=== PATIENT | male | born 1970 | race Caucasian/White ===

== ENCOUNTER 2022-03-27 15:34 | Inpatient (IN) | payer MEDICAID, SELFPAY ==
[2022-03-27 15:34] VITALS: BP 104/76; PULSE 86; RESP 18; TEMP 36.4; O2SAT 99
[2022-03-27 16:04] VITALS: BMI 24.5
--- NOTE | 2022-03-27 16:45 | PC.NURSE ---
Patient denies current SI/HI or VH/AH. Patient states he was admitted due to overdosing on one of his depression medications (he can't remember the name of it). He states he just started having thoughts that no one cared about or loved him. He says he currently lives with his fiance and her mom, who is on hospice. Patient says his former in 2013 of a heart attack and his kids won't talk to him anymore. When asked what the conflict was with the children he stated, I have no idea. He states he has been diagnosed as bipolar before when he was at [facility] for a suicide attempt last year for an overdose with lyrica, seroquel and trazadone around the same time last year.
[2022-03-27 17:29] LABS: Glucose Point of Care 395 mg/dL (70-110)
[2022-03-27] MEDS: insulin lispro 100 unit/1 mL SUBCUT (18:31)
[2022-03-27 19:51] LABS: Glucose Point of Care 374 mg/dL (70-110)
[2022-03-27] MEDS: trazodone 50 mg Tablet PO (20:27)
[2022-03-27] MEDS: pantoprazole DR 40 mg Tablet PO (20:46)
[2022-03-27 21:56] VITALS: BP 104/76; PULSE 86; RESP 18; TEMP 36.4
[2022-03-27 22:36] VITALS: RESP 18
[2022-03-28 06:00] VITALS: BP 106/69; PULSE 75; RESP 16; TEMP 36.7; O2SAT 97
[2022-03-28 08:13] LABS: Glucose Point of Care 292 mg/dL (70-110)
--- NOTE | 2022-03-28 09:06 | P.NPUHP_ITS ---
Providers/Chief Complaint Admitting Physician: Sreekanth Velez MD Chief Complaint: SI HPI NPU History of Present Illness Lisa Stone is a 52 year old male who presented to [facility] with reports of an intentional overdose. He has a history of type 2 diabetes hypertension hyperlipidemia and depression and was admitted to their ICU for further evaluation after a reported intentional overdose of Lamictal and trazodone. They had suspicion of serotonin syndrome and he was placed on benzodiazepines and IV hydration and insulin regimen psychiatry was consulted and inpatient hospitalization was recommended. He was transferred to [facility] and admitted to the neuropsychiatric unit for definitive treatment of those issues. He presents today reporting that he knows that he did somethin g stupid but that this time it was not as bad as other times. He reports that he had not been taking his medications and started having increased depression. He reports that he took the overdose secondary to feeling some sort away and likely secondary to relapsing on methamphetamine. He endorses that he chews but does not drink significant alcohol and has cannabis every once in a while. He does report having difficulties with methamphetamine reporting that he uses every month but could not be more specific about his use pattern he denies that it is a big deal. He denies having significant treatment or sequela from his use. He was having occasional tweaking behavior which she reports as side effects from previous Abilify use and denies that it likely is a methamphetamine induced phenomena. He reports that he is open to getting some medication restarted but was unclear what he would be willing to take. We discussed the risks, benefits and alternatives of a trial of Invega and he understood and agreed to proceed as is documented in this note. He was never able to articulate why this overdose occurred right now and he seemed to be more interested in a hastened discharge then a factual conversation. Psychiatric history: As above. Substance abuse history: As above. Developmental history: He denied any issues of developmental delay, or delivery issues or learning disability. Psychosocial history: He was a limited historian as we explored this area but reports that he might be on disability and not currently working. He was very tightlipped or at least avoided questions about his psychosocial history. Medical history: He does have diabetes and reports other medical issues and some allergies but was not specific. Legal history: He denied any significant legal issues at this time. Meds NPU Home Medications Medication Instructions Recorded Confirmed Last Taken Type atorvastatin 10 mg tablet 10 mg PO DAILY 03/27/22 03/27/22 Unknown History fluoxetine 10 mg capsule 10 mg PO DAILY 03/27/22 03/27/22 Unknown History glipizide 5 mg tablet 5 mg PO BIDWM 03/27/22 03/27/22 Unknown History insulin glargine 100 unit/mL (3 30 unit SUBCUT DIRECTED 03/27/22 03/28/22 Unknown History mL) subcutaneous pen (Lantus Solostar U-100 Insulin) lamotrigine 150 mg tablet 150 mg PO BID 03/27/22 03/27/22 Unknown History metformin 500 mg tablet 1,000 mg PO BID 03/27/22 03/27/22 Unknown History pantoprazole 40 mg tablet,delayed 40 mg PO BEDTIME 03/27/22 03/27/22 Unknown History release Allergies Allergy/AdvReac Type Severity Reaction Status Date / Time No Known Allergies Allergy Verified 03/27/22 15:31 Mental Status Exam MSE Comments: This is a well-nourished well-developed white male looking younger than his stated age in hospital scrubs with adequate grooming and eye contact. No abnormal movements except for occasional psychomotor agitation that looks like tweaking but certainly could represent a EPS syndrome related to Abilify or other psychotropic medication. Cooperative with exam in no acute distress. Speech was limited and normal rate and decreased volume. Mood described as better than yesterday, affect antsy. Thought process organized. Thought content: Patient denied suicidal or homicidal ideations, there were no delusions reported or noted, he denied any auditory or visual hallucinations. Attention and concentration were intact and memory appeared unreliable but none were formally tested. He is alert and oriented x3. Insight, judgment and impulse control appear impaired. Vitals/I&O/Wt Last Vital Signs Temp 98.1 F 03/28/22 06:00 Pulse 75 03/28/22 06:00 Resp 16 03/28/22 06:00 BP 106/69 03/28/22 06:00 Pulse Ox 97 03/28/22 06:00 O2 Del Method 03/28/22 06:00 Weight last 48 hrs Weight 84.368 kg Weight 84.368 kg A&P Assessment and plan (1) Major depressive disorder, recurrent: (2) Serotonin syndrome: (3) Intentional overdose: (4) Diabetes: Plan This is a 52-year-old white male with a long history of addiction, diabetes and reported suicide attempts/overdoses who presents status post overdose reporting that he is fine in general and desiring to leave as soon as possible not on a 96-hour hold. 1. Continue current medication. We will consider initiating Invega 3 mg p.o. daily after further discussion. 2. Continue every 15 minute checks for safety. 3. Encourage individual, group and milieu therapies. 4. Encourage sober living treatment after discharge at the highest level of care to which he is willing to commit. Involuntary Hold Information 96 Hour Hold: 96 Hour Involuntary Admission: No Attestations NPU Medical Necessity Statement*: Inpatient hospitalization is medically necessary and the clinically appropriate intervention at this time. We will monitor/initiate medications and make changes as indicated. He will be in the hospital for over 2 midnights. Likely length of stay 3 to 5 days. Coding Level of Care Code Acute [employer] Functional Analyst for Minnie Zhang Diagnoses Major depressive disorder, recurrent F33.9 Serotonin syndrome G25.79 Intentional overdose T50.902A Diabetes E11.9
[2022-03-28 12:25] LABS: Glucose Point of Care 400 mg/dL (70-110)
[2022-03-28] MEDS: insulin lispro 100 unit/1 mL SUBCUT ×3 (12:34→22:43)
--- NOTE | 2022-03-28 13:30 | PC.NURSE ---
DURING AM ASSESSMENT PT REFUSED TO LET THIS NURSE ASSESS ANYTHING. PT REMAINED IN BED WITH BLANKET OVER HIS FACE. PT ALSO REFUSED ALL MORNING MEDS AND WANTED TO BE LEFT ALONE. DURING LUNCH PT TOOK MEDS ORDERED.
[2022-03-28 14:00] VITALS: BP 111/72; PULSE 83; RESP 16; TEMP 36.2; O2SAT 100
[2022-03-28] MEDS: lamoTRIgine 100 mg Tablet 150 MG PO (17:45)
[2022-03-28] MEDS: metformin 500 mg Tablet 1000 MG PO (17:45)
[2022-03-28 17:50] LABS: Glucose Point of Care 456 mg/dL (70-110)
[2022-03-28 19:57] VITALS: BP 123/83; PULSE 90; RESP 18; TEMP 36.6; O2SAT 98
[2022-03-28] MEDS: pantoprazole DR 40 mg Tablet PO (20:26)
[2022-03-28] MEDS: trazodone 50 mg Tablet PO ×2 (20:26→21:41)
[2022-03-28 21:43] LABS: Glucose Point of Care 394 mg/dL (70-110)
[2022-03-28] MEDS: acetaminophen 325 mg Tablet 650 MG PO (21:47)
[2022-03-29 06:00] VITALS: RESP 16
[2022-03-29 08:26] LABS: Glucose Point of Care 324 mg/dL (70-110)
[2022-03-29] MEDS: insulin lispro 100 unit/1 mL SUBCUT ×4 (09:15→19:56)
--- NOTE | 2022-03-29 09:44 | W.PM.NPUPNS ---
Subjective NPU Subjective: Patient presents today reporting that he is unsure whether he plans to take the medication. He continued to downplay his overdose and we discussed the plan to have the treatment team work with him on referrals Thursday. We discussed his previous medications but he feels he just needs to work on his addiction, but that he had no real commitment to that conversation showing significant ambivalence. Mental Status Exam MSE Comments: This is a well-nourished well-developed white male looking younger than his stated age in hospital scrubs with adequate grooming and eye contact. No abnormal movements except for occasional psychomotor agitation that looks like tweaking but certainly could represent a EPS syndrome related to Abilify or other psychotropic medication. Cooperative with exam in no acute distress. Speech was limited and normal rate and decreased volume. Mood described as,okay, want I want to go home soon as possible\, affect antsy. Thought process organized. Thought content: Patient denied suicidal or homicidal ideations, there were no delusions reported or noted, he denied any auditory or visual hallucinations. Attention and concentration were intact and memory appeared unreliable but none were formally tested. He is alert and oriented x3. Insight, judgment and impulse control appear impaired. Vitals/I&O/Wt Last Vital Signs Temp 97.9 F 03/28/22 19:57 Pulse 90 03/28/22 19:57 Resp 16 03/29/22 06:00 BP 123/83 03/28/22 19:57 Pulse Ox 98 03/28/22 19:57 O2 Del Method 03/28/22 14:00 Weight last 48 hrs Weight 84.368 kg Weight 84.368 kg A&P Assessment and plan (1) Major depressive disorder, recurrent: (2) Serotonin syndrome: (3) Intentional overdose: (4) Diabetes: Plan This is a 52-year-old white male with a long history of addiction, diabetes and reported suicide attempts/overdoses who presents status post overdose reporting that he is fine in general and desiring to leave as soon as possible not on a 96-hour hold. 1. Continue current medication. We will consider initiating Invega 3 mg p.o. daily after further discussion. 2. Continue every 15 minute checks for safety. 3. Encourage individual, group and milieu therapies. 4. Encourage sober living treatment after discharge at the highest level of care to which he is willing to commit. Involuntary Hold Information 96 Hour Hold: 96 Hour Involuntary Admission: No Attestations NPU Medical Necessity Statement*: Inpatient hospitalization is medically necessary and the clinically appropriate intervention at this time. We will monitor/initiate medications and make changes as indicated. Likely length of stay 2 to 4 days. Coding Level of Care Code Acute Junior Staff Accountant for g Fwd Diagnoses Major depressive disorder, recurrent F33.9 Serotonin syndrome G25.79 Intentional overdose T50.902A Diabetes E11.9
[2022-03-29] MEDS: atorvastatin 40 mg Tablet 20 MG PO (10:13)
[2022-03-29] MEDS: fluoxetine 10 mg Capsule PO (10:13)
[2022-03-29] MEDS: lamoTRIgine 100 mg Tablet 150 MG PO ×2 (10:14→18:22)
[2022-03-29] MEDS: metformin 500 mg Tablet 1000 MG PO ×2 (10:14→18:22)
[2022-03-29 12:31] LABS: Glucose Point of Care 299 mg/dL (70-110)
[2022-03-29 14:00] VITALS: BP 129/84; PULSE 97; RESP 18; TEMP 36.9; O2SAT 96
[2022-03-29 17:42] LABS: Glucose Point of Care 338 mg/dL (70-110)
[2022-03-29 19:52] LABS: Glucose Point of Care 490 mg/dL (70-110)
[2022-03-29] MEDS: pantoprazole DR 40 mg Tablet PO (19:55)
[2022-03-29] MEDS: insulin glargine 100 units/1 mL 30 UNIT SUBCUT (19:55)
[2022-03-29 20:25] VITALS: BP 124/78; PULSE 103; RESP 18; TEMP 36.8; O2SAT 96
[2022-03-29] MEDS: trazodone 50 mg Tablet PO (22:06)
[2022-03-30 06:00] VITALS: BP 127/78; PULSE 76; RESP 18; TEMP 36.3; O2SAT 96; BMI 24.5
[2022-03-30 07:59] LABS: Glucose Point of Care 418 mg/dL (70-110)
[2022-03-30] MEDS: insulin lispro 100 unit/1 mL SUBCUT ×4 (08:06→20:36)
[2022-03-30] MEDS: metformin 500 mg Tablet 1000 MG PO ×2 (08:18→17:28)
[2022-03-30] MEDS: lamoTRIgine 100 mg Tablet 150 MG PO ×2 (08:18→20:37)
[2022-03-30] MEDS: atorvastatin 40 mg Tablet 20 MG PO (08:18)
--- NOTE | 2022-03-30 08:19 | PC.NURSE ---
refused scheduled Prozac
[2022-03-30 12:25] LABS: Glucose Point of Care 362 mg/dL (70-110)
--- NOTE | 2022-03-30 12:46 | W.PM.NPUPNS ---
Subjective NPU Subjective: Patient presented today continuing to be resistant to initiate medications reporting that he will talk to his PCP about medications once he gets back to see them. We discussed willingness to start medication now but he was without want to do that. We discussed the likelihood of discharge tomorrow. He reported an ability to contract for safety but still speaks about his overdose attempts but he does not have absolute control over them. Mental Status Exam MSE Comments: This is a well-nourished well-developed white male looking younger than his stated age in hospital scrubs with adequate grooming and eye contact. No abnormal movements except for occasional psychomotor agitation that looks like tweaking but certainly could represent a EPS syndrome related to Abilify or other psychotropic medication. Cooperative with exam in no acute distress. Speech was normal rate and decreased volume. Mood described as I feel better, affect less antsy. Thought process organized. Thought content: Patient denied suicidal or homicidal ideations, there were no delusions reported or noted, he denied any auditory or visual hallucinations. Attention and concentration were intact and memory appeared more reliable but none were formally tested. He is alert and oriented x3. Insight, judgment and impulse control appear improving. Vitals/I&O/Wt Last Vital Signs Temp 97.4 F L 03/30/22 06:00 Pulse 76 03/30/22 06:00 Resp 18 03/30/22 06:00 BP 127/78 03/30/22 06:00 Pulse Ox 96 03/30/22 06:00 O2 Del Method 03/30/22 06:00 Weight last 48 hrs Weight 84.482 kg Weight 84.482 kg A&P Assessment and plan (1) Major depressive disorder, recurrent: (2) Serotonin syndrome: (3) Intentional overdose: (4) Diabetes: Plan This is a 52-year-old white male with a long history of addiction, diabetes and reported suicide attempts/overdoses who presents status post overdose reporting that he is fine in general and desiring to leave as soon as possible not on a 96-hour hold. 1. Continue current medication. We will consider initiating Invega 3 mg p.o. daily after further discussion. 2. Continue every 15 minute checks for safety. 3. Encourage individual, group and milieu therapies. 4. Encourage sober living treatment after discharge at the highest level of care to which he is willing to commit. Involuntary Hold Information 96 Hour Hold: 96 Hour Involuntary Admission: No Attestations NPU Medical Necessity Statement*: Inpatient hospitalization is medically necessary and the clinically appropriate intervention at this time. We will monitor/initiate medications and make changes as indicated. Likely length of stay 1-3 days. Coding Level of Care Code Acute Director Of Business Continuity for [facility] Fwd Diagnoses Major depressive disorder, recurrent F33.9 Serotonin syndrome G25.79 Intentional overdose T50.902A Diabetes E11.9
[2022-03-30 14:00] VITALS: BP 136/76; PULSE 94; RESP 18; O2SAT 97
[2022-03-30] MEDS: acetaminophen 325 mg Tablet 650 MG PO (14:46)
[2022-03-30 17:01] LABS: Glucose Point of Care 487 mg/dL (70-110)
[2022-03-30 19:49] LABS: Glucose Point of Care 334 mg/dL (70-110)
[2022-03-30 20:04] VITALS: BP 118/80; PULSE 99; RESP 18; TEMP 36.7; O2SAT 98
[2022-03-30] MEDS: insulin glargine 100 units/1 mL 30 UNIT SUBCUT (20:36)
[2022-03-30] MEDS: pantoprazole DR 40 mg Tablet PO (20:37)
[2022-03-30] MEDS: haloperidol 5 mg Tablet PO (21:57)
[2022-03-30] MEDS: trazodone 50 mg Tablet PO (22:24)
[2022-03-31] MEDS: insulin lispro 100 unit/1 mL SUBCUT ×4 (07:51→20:21)
[2022-03-31] MEDS: metformin 500 mg Tablet 1000 MG PO ×2 (07:56→17:35)
[2022-03-31] MEDS: atorvastatin 40 mg Tablet 20 MG PO (07:57)
[2022-03-31] MEDS: lamoTRIgine 100 mg Tablet 150 MG PO ×2 (07:57→20:19)
[2022-03-31] MEDS: fluoxetine 10 mg Capsule PO (07:57)
[2022-03-31 07:58] LABS: Glucose Point of Care 247 mg/dL (70-110)
--- NOTE | 2022-03-31 11:03 | P.NPUDS_ITS ---
Diagnoses at Discharge Discharge Diagnosis (1) Major depressive disorder, recurrent: Status: Acute (2) Serotonin syndrome: Status: Acute (3) Intentional overdose: Status: Acute (4) Diabetes: Status: Acute Reason for Visit Reason for Visit: SI Brief History: History of Present Illness Lisa Stone is a 52 year old male who presented to [facility] with reports of an intentional overdose.? He has a history of type 2 diabetes hypertension hyperlipidemia and depression and was admitted to their ICU for further evaluation after a reported intentional overdose of Lamictal and trazodone.? They had suspicion of serotonin syndrome and he was placed on benzodiazepines and IV hydration and insulin regimen psychiatry was consulted and inpatient hospitalization was recommended.? He was transferred to [facility] and admitted to the neuropsychiatric unit for definitive treatment of those issues.? He presents today reporting that he knows that he did something stupid but that this time it was not as bad as other times.? He reports that he had not been taking his medications and started having increased depression.? He reports that he took the overdose secondary to feeling some sort away and likely secondary to relapsing on methamphetamine.? He endorses that he chews but does not drink significant alcohol and has cannabis every once in a while.? He does report having difficulties with methamphetamine reporting that he uses every month but could not be more specific about his use pattern he denies that it is a big deal.? He denies having significant treatment or sequela from his use.? He was having occasional tweaking behavior which she reports as side effects from previous Abilify use and denies that it likely is a methamphetamine induced phenomena.? He reports that he is open to getting some medication restarted but was unclear what he would be willing to take.? We discussed the risks, benefits and alternatives of a trial of Invega and he understood and agreed to proceed as is documented in this note.? He was never ab le to articulate why this overdose occurred right now and he seemed to be more interested in a hastened discharge then a factual conversation. Psychiatric history: As above. Substance abuse history: As above. Developmental history: He denied any issues of developmental delay, or delivery issues or learning disability. Psychosocial history: He was a limited historian as we explored this area but reports that he might be on disability and not currently working.? He was very tightlipped or at least avoided questions about his psychosocial history. Medical history: He does have diabetes and reports other medical issues and some allergies but was not specific. Legal history: He denied any significant legal issues at this time. Hospital Course Hospital Course He slowly acclimated to the individual, group and milieu therapies provided.? He was not interested in getting started on new medication.? He [place] like his medications except for adding trazodone. He was able to contract for safety outside of the hospital prior to discharge and showed modest improvement.? At the outside hospital, patient had routine laboratory studies which were within normal limits except for few outliers.? Additionally there was a general medical evaluation which was also within normal limits and revealed no new acute processes. Discharge Summary: At the time of discharge, he denied psychosis or lethality.? Mood and anxiety were well managed.? Patient endorsed a plan to avoid all drugs of abuse and follow-up with the aftercare recommendations of the treatment team.? Patient was evaluated and deemed to be absent credible lethality, and had achieved the maximum benefit from an inpatient hospitalization, so was discharged. Involuntary Hold Information 96 Hour Hold: 96 Hour Involuntary Admission: No Mental Status Exam MSE Comments: This is a well-nourished well-developed white male looking younger than his stated age in hospital scrubs with adequate grooming and eye contact. No abnormal movements except for occasional psychomotor agitation that looks like tweaking but certainly could represent a EPS syndrome related to Abilify or other psychotropic medication. Cooperative with exam in no acute distress. Speech was normal rate and decreased volume. Mood described as I feel better, affect less antsy. Thought process organized. Thought content: Patient denied suicidal or homicidal ideations, there were no delusions reported or noted, he denied any auditory or visual hallucinations. Attention and concentration were intact and memory appeared more reliable but none were formally tested. He is alert and oriented x3. Insight, judgment and impulse control appear improving. Discharge Data Studies Completed and Pending: Laboratory Results POC Glucose 247 mg/dL (70-110 ) H 03/31/22 07:44 Vitals: Last Vital Signs Temp 98.1 F 03/30/22 20:04 Pulse 99 03/30/22 20:04 Resp 18 03/30/22 20:04 BP 118/80 03/30/22 20:04 Pulse Ox 98 03/30/22 20:04 O2 Del Method 03/30/22 06:00 Discharge Plan Discharge Patient Disposition: Home Condition: Stable Prescriptions: New trazodone 50 mg Tablet 50 mg PO BEDTIME PRN (Reason: Sleep) 30 Days Qty: 30 1RF Continued atorvastatin 10 mg tablet 10 mg PO DAILY metformin 500 mg tablet 1,000 mg PO BID pantoprazole 40 mg tablet,delayed release (DR/EC) 40 mg PO BEDTIME glipizide 5 mg tablet 5 mg PO BIDWM insulin glargine [Lantus Solostar U-100 Insulin] 100 unit/mL (3 mL) insulin pen 30 unit SUBCUT DIRECTED Rx Instructions: 40 units subQ before breakfast, 30units subQ at bedtime lamotrigine 150 mg tablet 150 mg PO BID 30 Days Qty: 60 1RF fluoxetine 10 mg capsule 10 mg PO DAILY 30 Days Qty: 30 1RF Discharge Orders: Discharge Order (Routine); Ordered 04/01/22 Ordered By: Sreekanth Velez Referrals: Daniela De Leon DO [Other] - 04/28/22 1:[address] [facility] [Other] - 1-3 days (Walk-in for services Thursday-Thursday 8am to 4pm) Discharge Diet: Diabetic Discharge Activity: Resume usual activity Patient Instructions: Depression, Opioid Safety Discharge Attestations NPU Time Spent in Discharge Care*: less than 30 min Specific Discharge Activities: Specific discharge activities: educating patient, discussing with assistant case manager/social workers/dc planners, documenting/other paperwork and evaluating patient/reviewing data Coding Level of Care Code Acute g FW DC note Diagnoses Major depressive disorder, recurrent F33.9 Serotonin syndrome G25.79 Intentional overdose T50.902A Diabetes E11.9
[2022-03-31 11:15] VITALS: BP 118/80; PULSE 99; RESP 18; TEMP 36.7; O2SAT 98
[2022-03-31 12:10] LABS: Glucose Point of Care 344 mg/dL (70-110)
[2022-03-31] MEDS: hyDROXYzine 25 mg Capsule 50 MG PO (13:53)
[2022-03-31 14:00] VITALS: BP 136/81; PULSE 97; RESP 18; TEMP 36.6; O2SAT 95
[2022-03-31] MEDS: ARIPiprazole 10 mg Tablet PO (14:28)
--- NOTE | 2022-03-31 15:54 | W.PM.NPUPNS ---
Subjective NPU Subjective: Patient presented today reporting that he was ready to leave. We had discussed the possibility of his discharge. However he reached out to the significant other that some of his impulsivity was surrounding and told her he would kill himself if she was going to break it off with him. We discussed the situation and he feels he was just saying that we will be really to monitor him for another day at least to make sure he was actually safe. Mental Status Exam MSE Comments: This is a well-nourished well-developed white male looking younger than his stated age in hospital scrubs with adequate grooming and eye contact. No abnormal movements except for occasional psychomotor agitation that looks like tweaking, but less often and it certainly could represent a EPS syndrome related to Abilify or other psychotropic medication. Cooperative with exam in no acute distress. Speech was normal rate and decreased volume. Mood described as I am really fine, affect less antsy. Thought process organized. Thought content: Patient denied suicidal or homicidal ideations, there were no delusions reported or noted, he denied any auditory or visual hallucinations. Attention and concentration were intact and memory appeared more reliable but none were formally tested. He is alert and oriented x3. Insight, judgment and impulse control appear improving. Vitals/I&O/Wt Last Vital Signs Temp 98 F 03/31/22 14:00 Pulse 97 03/31/22 14:00 Resp 18 03/31/22 14:00 BP 136/81 03/31/22 14:00 Pulse Ox 95 03/31/22 14:00 O2 Del Method 03/31/22 14:00 Weight last 48 hrs Weight 84.482 kg Weight 84.482 kg A&P Assessment and plan (1) Major depressive disorder, recurrent: (2) Serotonin syndrome: (3) Intentional overdose: (4) Diabetes: Plan This is a 52-year-old white male with a long history of addiction, diabetes and reported suicide attempts/overdoses who presents status post overdose reporting that he is fine in general and desiring to leave as soon as possible not on a 96-hour hold. 1. Continue current medication. Start Abilify 10 mg p.o. every morning. 2. Continue every 15 minute checks for safety. 3. Encourage individual, group and milieu therapies. 4. Encourage sober living treatment after discharge at the highest level of care to which he is willing to commit. 5. We will reconsider discharge tomorrow. Involuntary Hold Information 96 Hour Hold: 96 Hour Involuntary Admission: No Attestations NPU Medical Necessity Statement*: Inpatient hospitalization is medically necessary and the clinically appropriate intervention at this time. We will monitor/initiate medications and make changes as indicated. Likely length of stay 1-2 days. Coding Level of Care Code Acute Machine Buffer for [facility] Fwd Diagnoses Major depressive disorder, recurrent F33.9 Serotonin syndrome G25.79 Intentional overdose T50.902A Diabetes E11.9
[2022-03-31 17:35] LABS: Glucose Point of Care 431 mg/dL (70-110)
[2022-03-31 20:01] VITALS: BP 127/79; PULSE 74; RESP 18; TEMP 36.9; O2SAT 98
[2022-03-31 20:19] LABS: Glucose Point of Care 289 mg/dL (70-110)
[2022-03-31] MEDS: pantoprazole DR 40 mg Tablet PO (20:19)
[2022-03-31] MEDS: trazodone 50 mg Tablet PO ×2 (20:19→21:28)
[2022-03-31] MEDS: insulin glargine 100 units/1 mL 30 UNIT SUBCUT (20:20)
[2022-04-01 06:00] VITALS: BP 121/79; PULSE 86; RESP 18; TEMP 36.3; O2SAT 98
[2022-04-01 08:10] LABS: Glucose Point of Care 371 mg/dL (70-110)
[2022-04-01] MEDS: insulin lispro 100 unit/1 mL SUBCUT (08:25)
[2022-04-01] MEDS: metformin 500 mg Tablet 1000 MG PO (08:26)
[2022-04-01] MEDS: ARIPiprazole 10 mg Tablet PO (08:26)
[2022-04-01] MEDS: atorvastatin 40 mg Tablet 20 MG PO (08:26)
[2022-04-01] MEDS: lamoTRIgine 100 mg Tablet 150 MG PO (08:27)
--- NOTE | 2022-04-01 08:28 | PC.NURSE ---
REFUSED SCHEDULED PROZAC
== END 2022-04-01 12:24 | disposition home or self-care (01) | DRG 918 ==
PROVIDERS: Admitting Provider Psychiatry & Neurology Psychiatry; Visit Provider Psychiatry & Neurology Psychiatry
DX: T42.6X2A Poisoning by other antiepileptic and sedative-hypnotic drugs, intentional self-harm, initial encounter (principal); F33.9 Major depressive disorder, recurrent, unspecified; E11.9 Type 2 diabetes mellitus without complications; I10 Essential (primary) hypertension; E78.5 Hyperlipidemia, unspecified; Z91.128 Patient's intentional underdosing of medication regimen for other reason; F17.220 Nicotine dependence, chewing tobacco, uncomplicated; G25.79 Other drug induced movement disorders; Z79.84 Long term (current) use of oral hypoglycemic drugs; Z79.4 Long term (current) use of insulin
CPT/HCPCS: 36416; 82962; 96372; 97165; J1815